=== PATIENT | male | born 1960 | race African-American/Black ===

== ENCOUNTER 2018-10-15 12:37 | Inpatient (IN) | payer MEDICAID, OTHER ==
[~2018-10-15] VITALS: Ht 170.2 cm; Wt 73.0 kg
[2018-10-16] MEDS ORDERED: HYDRALAZINE 20MG/ML VIAL IV ONE (03:30)
[2018-10-16 03:45] LABS: BASOPHILS % 0.9 % (0.0-2.0); EOSINOPHILS % 3.3 % (0.0-5.0); HEMATOCRIT. 46.9 % (42.0-52.0); HEMOGLOBIN. 15.2 g/dL (14.0-18.0); LYMPHOCYTES % 29.6 % (20.0-50.0); MEAN CORPUSCULAR HEMOGLOBIN 32.1 pg (28.0-32.0); MEAN CORPUSCULAR VOLUME 98.7 fL (80.0-94.0); MEAN PLATELET VOLUME 9.7 fl (7.4-10.4); MONOCYTES % 9.9 % (2.0-8.0); NEUTROPHILS % 56.3 % (40.0-76.0); PLATELET 166 x1000/uL (130-400); RED BLOOD CELL COUNT 4.75 mill/uL (4.7-6.1); RED CELL DISTRIBUTION WIDTH 12.6 % (11.6-14.6)
[2018-10-16 03:47] LABS: CHLORIDE 106 mEq/L (98-107)
[2018-10-16 03:52] LABS: ETHANOL BLOOD < 10 mg/dL
[2018-10-16] MEDS ORDERED: IBUPROFEN 600MG TABLET PO PRN (05:30)
[2018-10-16] MEDS ORDERED: ASPIRIN 81MG TABLET PO ONE (05:30)
[2018-10-16 13:00] VITALS: BP 185/107
[2018-10-16 14:41] VITALS: BP 185/107
[2018-10-16] MEDS: DILTIAZEM HCL 90MG TABLET PO SCH ×2 (14:43→21:20)
[2018-10-16] MEDS: HYDROCHLOROTHIAZIDE 25MG TABLET PO SCH (14:43)
[2018-10-16] MEDS ORDERED: LORAZEPAM 0.5MG TABLET PO PRN (16:30)
[2018-10-16] MEDS ORDERED: DOCUSATE SODIUM 100MG CAPSULE PO PRN (16:30)
[2018-10-16] MEDS ORDERED: ONDANSETRON HCL 4MG/2ML INJ IV PRN (16:30)
[2018-10-16] MEDS ORDERED: HYDROCODONE/ACETAMINOPHEN 5/325MG TABLET PO PRN (16:30)
[2018-10-16] MEDS ORDERED: ACETAMINOPHEN 325MG TABLET PO PRN (16:30)
[2018-10-16] MEDS ORDERED: IPRATROPIUM/ALBUTEROL 0.5-3(2.5)MG/3ML NEB INH PRN (16:30)
[2018-10-16] MEDS: CLONIDINE 0.1MG TABLET PO PRN (17:25)
[2018-10-16 17:33] LABS: PROTHROMBIN TIME 10.4 sec (9.1-11.1)
[2018-10-16 17:44] LABS: HDL CHOLESTEROL 59 mg/dL (40-59); LDL CHOLESTEROL 98 mg/dL (5-100)
[2018-10-16 17:45] LABS: CREATINE KINASE 171 IU/L (39-308)
[2018-10-16 17:47] LABS: CREATINE KINASE MB FRACTION < 1.0 ng/mL (0.5-3.6)
[2018-10-16 20:00] VITALS: BP 186/123
[2018-10-16] MEDS ORDERED: CLON0.1T14 PO (20:35)
[2018-10-17] VITALS (7 sets, daily range): BP systolic 135–168; BP diastolic 90–115
[2018-10-17] MEDS: CLONIDINE 0.1MG TABLET PO PRN (00:11)
[2018-10-17 00:39] LABS: CLARITY URINE CLEAR (CLEAR); COLOR URINE YELLOW (YELLOW); KETONES URINE NEGATIVE (NEGATIVE); LEUKOCYTE ESTERASE URINE NEGATIVE (NEGATIVE); NITRITE URINE NEGATIVE (NEGATIVE); OCCULT BLOOD URINE NEGATIVE (NEGATIVE); PH URINE 5.5 (4.5-8.0); PROTEIN URINE NEGATIVE (NEGATIVE); SPECIFIC GRAVITY URINE 1.008 (1.005-1.030); UROBILINOGEN URINE 0.2 E.U./dL (0.2-1.0)
[2018-10-17 01:26] LABS: *AMPHETAMINES SCREEN URINE NEGATIVE (NEGATIVE); *BARBITURATES SCREEN URINE NEGATIVE (NEGATIVE); *BENZODIAZEPINES SCREEN URINE NEGATIVE (NEGATIVE); *COCAINE SCREEN URINE NEGATIVE (NEGATIVE); CANNABINOID URINE SCREEN NEGATIVE (NEGATIVE); METHADONE URINE SCREEN NEGATIVE (NEGATIVE); OPIATES URINE SCREEN NEGATIVE (NEGATIVE); PHENCYCLIDINE URINE SCREEN NEGATIVE (NEGATIVE)
[2018-10-17] MEDS: DILTIAZEM HCL 90MG TABLET PO SCH ×3 (05:15→18:56)
[2018-10-17 07:06] LABS: BASOPHILS % 0.8 % (0.0-2.0); EOSINOPHILS % 5.2 % (0.0-5.0); HEMATOCRIT. 44.7 % (42.0-52.0); HEMOGLOBIN. 14.4 g/dL (14.0-18.0); MEAN CORPUSCULAR HEMOGLOBIN 31.7 pg (28.0-32.0); MEAN CORPUSCULAR VOLUME 98.7 fL (80.0-94.0); MEAN PLATELET VOLUME 9.8 fl (7.4-10.4); MONOCYTES % 10.9 % (2.0-8.0); NEUTROPHILS % 50.1 % (40.0-76.0); PLATELET 178 x1000/uL (130-400); RED BLOOD CELL COUNT 4.53 mill/uL (4.7-6.1); RED CELL DISTRIBUTION WIDTH 12.8 % (11.6-14.6)
[2018-10-17 07:23] LABS: CHLORIDE 104 mEq/L (98-107)
[2018-10-17] MEDS: HYDROCHLOROTHIAZIDE 25MG TABLET PO SCH (10:44)
[2018-10-17] MEDS: LISINOPRIL 10MG TABLET PO SCH ×2 (13:34→20:53)
[2018-10-18] MEDS: DILTIAZEM HCL 90MG TABLET PO SCH ×2 (00:15→05:39)
[2018-10-18 00:34] VITALS: BP 155/89
[2018-10-18 04:00] VITALS: BP 168/100
[2018-10-18 05:28] LABS: HIV SCREEN 4G Non Reactive (Non Reactive)
[2018-10-18 06:40] LABS: BASOPHILS % 1.2 % (0.0-2.0); EOSINOPHILS % 6.9 % (0.0-5.0); HEMATOCRIT. 45.7 % (42.0-52.0); LYMPHOCYTES % 36.5 % (20.0-50.0); MEAN CORPUSCULAR HEMOGLOBIN 32.1 pg (28.0-32.0); MEAN CORPUSCULAR VOLUME 97.9 fL (80.0-94.0); MEAN PLATELET VOLUME 9.9 fl (7.4-10.4); MONOCYTES % 11.4 % (2.0-8.0); PLATELET 177 x1000/uL (130-400); RED BLOOD CELL COUNT 4.67 mill/uL (4.7-6.1); RED CELL DISTRIBUTION WIDTH 12.8 % (11.6-14.6)
[2018-10-18 06:45] LABS: CHLORIDE 105 mEq/L (98-107)
[2018-10-18 08:07] VITALS: BP 159/96
[2018-10-18] MEDS: HYDROCHLOROTHIAZIDE 25MG TABLET PO SCH (08:52)
[2018-10-18] MEDS: LISINOPRIL 10MG TABLET PO SCH (08:52)
[2018-10-18] MEDS ORDERED: DILTIAZEM HCL 120MG CAPSULE CD 24HR PO SCH (10:30)
[2018-10-18] MEDS ORDERED: POTASSIUM CHLORIDE 20MEQ TABLET SR PO NR (10:30)
[2018-10-18 10:51] VITALS: BP 150/90
[2018-10-18 12:15] VITALS: BP 158/104
[2018-10-18] MEDS: CLONIDINE 0.1MG TABLET PO PRN (13:30)
[2018-10-18] MEDS ORDERED: LISINOPRIL 20MG TABLET PO SCH (21:00)
== END 2018-10-18 14:25 | disposition home or self-care (01) | DRG 201 ==
LOC: ER 12:37 → 6WST 10-16 05:32 → EDBEDREQTM 10-16 05:44 → EDBEDREQ 10-16 05:44 → CANRESERV 10-16 07:10 → ENRESERV 10-16 07:10
PROVIDERS: ADMIT Internal Medicine; ATTEND Internal Medicine
DX: I48.91 Unspecified atrial fibrillation (principal); I42.0 Dilated cardiomyopathy; B19.10 Unspecified viral hepatitis B without hepatic coma; I16.1 Hypertensive emergency; F10.20 Alcohol dependence, uncomplicated; F17.210 Nicotine dependence, cigarettes, uncomplicated; J44.9 Chronic obstructive pulmonary disease, unspecified; R07.89 Other chest pain; I10 Essential (primary) hypertension
CPT/HCPCS: 36415; 71045; 80048; 80061; 80305; 80320; 82550; 82553; 83880; 84443; 84484; 87389; 93005; 93306; 93970; 96374; 99285; J0360; G0480